=== PATIENT | female | born 1950 | race Caucasian/White ===

== ENCOUNTER 2018-02-10 08:56 | Day surgery (SDC) | payer MEDICARE ==
[~2018-02-10] VITALS: Ht 167.6 cm; Wt 65.5 kg
[2018-02-10] MEDS ORDERED: LACTATED RINGERS 1,000 ML IV SCH (09:49)
[2018-02-10] MEDS ORDERED: LISI40TA PO (09:51)
[2018-02-10] MEDS ORDERED: PROP40TA PO (09:51)
[2018-02-10] MEDS ORDERED: LIDOCAINE-MPF 1%, 2ML INFIL ONE (10:00)
[2018-02-10 10:28] VITALS: BP 194/104
[2018-02-10 10:44] LABS: ALANINE AMINOTRANSFERASE 40 U/L (12-78); ALBUMIN 3.9 g/dL (3.4-5.0); ANION GAP 11 mmol/L (5-15); CALCIUM 9.1 mg/dL (8.5-10.1); CHLORIDE 108 mmol/L (98-107); CREATININE 0.79 mg/dL (0.55-1.02)
[2018-02-10 10:46] LABS: ALKALINE PHOSPHATASE 79 U/L (45-117); BILIRUBIN,TOTAL 0.9 mg/dL (0.2-1.0); TOTAL PROTEIN 7.4 g/dL (6.4-8.2)
[2018-02-10] MEDS ORDERED: BUPIVACAINE/PF 0.5% ONE (10:48)
[2018-02-10] MEDS ORDERED: EPINEPHRINE 1 MG/ML, 1ML ONE (10:48)
[2018-02-10] MEDS ORDERED: MIDAZOLAM 1 MG/ML, 2ML ONE (10:49)
[2018-02-10] MEDS ORDERED: LIDOCAINE-MPF 2% ,5ML ONE (10:50)
[2018-02-10] MEDS ORDERED: LIDOCAINE GEL 2%, 5ML ONE (10:50)
[2018-02-10] MEDS ORDERED: PROPOFOL 10 MG/ML, 20ML ONE (10:50)
[2018-02-10] MEDS ORDERED: DEXAMETHASONE 4 MG/ML, 1ML ONE ×2 (10:52)
[2018-02-10] MEDS ORDERED: ONDANSETRON 2MG/ML, 2ML ONE (10:53)
[2018-02-10] MEDS ORDERED: CEFAZOLIN 1,000 MG ONE (11:08)
[2018-02-10] MEDS ORDERED: FENTANYL PF 100 MCG/2ML ONE (11:27)
[2018-02-10] MEDS ORDERED: BACITRACIN 50,000 UNIT ONE (11:28)
[2018-02-10] MEDS ORDERED: OXYcodone 5 MG/5 ML ORAL.SOL UDC PO PRN (11:30)
[2018-02-10] MEDS ORDERED: ONDANSETRON 2MG/ML, 2ML IVPush PRN (11:30)
[2018-02-10] MEDS ORDERED: MEPERIDINE/PF 25MG/0.5ML IVPush PRN (11:30)
[2018-02-10] MEDS ORDERED: HYDROcodone/APAP 7.5-325MG/15ML UDC PO PRN (11:30)
[2018-02-10] MEDS ORDERED: FENTANYL PF 100 MCG/2ML IV PRN (11:30)
[2018-02-10] MEDS ORDERED: LABETALOL 5MG/ML, 20ML IV PRN (11:30)
[2018-02-10] MEDS ORDERED: morphine SULFATE 10 MG/ML, 1ML IV PRN (11:30)
[2018-02-10] MEDS ORDERED: EPHEDRINE 50 MG/ML, 1ML ONE (11:45)
[2018-02-10] MEDS ORDERED: hydrALAzine 20 MG/ML, 1ML ONE (12:58)
[2018-02-10] MEDS ORDERED: hydrALAzine 20 MG/ML, 1ML IV PRN (13:00)
[2018-02-10] MEDS ORDERED: LABETALOL 5MG/ML, 20ML ONE (13:12)
[2018-02-10] MEDS ORDERED: OXYcodone 5 MG/5 ML ORAL.SOL UDC ONE (13:16)
== END 2018-02-10 15:40 ==
LOC: OUT 08:56
PROVIDERS: ATTEND Orthopaedic Surgery
DX: S62.626A Displaced fracture of middle phalanx of right little finger, initial encounter for closed fracture (principal); X58.XXXA Exposure to other specified factors, initial encounter; Y93.89 Activity, other specified; Y92.89 Other specified places as the place of occurrence of the external cause; Y99.8 Other external cause status; Z79.899 Other long term (current) drug therapy
CPT/HCPCS: 26735; 36415; 73120; 76000; 80053; 93005; C1713; J0171; J0360; J0690; J1100; J2250; J2405; J2704; J3010; J3490; J7120